=== PATIENT | male | born 1990 | race Caucasian/White ===

== ENCOUNTER 2017-04-02 12:48 | Inpatient (IN) | payer MEDICAID, OTHER ==
[~2017-04-02] VITALS: Ht 180.3 cm; Wt 99.8 kg
--- NOTE | 2017-04-02 14:15 | NUR ---
PRE ASSESSMENT PATIENT SEEN IN INTAKE OFFICE PATIENT ARRIVED FROM [facility] ( FROM [facility] ) SITTING IN CHAIR, DISHEVELED AND APPEARS INTOXICATED. POOR EYE CONTACT AND SEEMS VERY DROWSY. VITAL SIGNS TAKEN : BP 133/89, HR 118, O2 99%. PATIENT STATES THAT HE IS HERE TO DETOX FROM HEROIN ( INHALATION/SMOKE) LAST USED 30 HOURS AGO. HE ALSO STATES HE TOOK 2MG XANAX TODAY. PATIENT STATES THAT HE HAS DM TYPE 1 AND IS ON INSULIN, LAST ACCU CHECK WAS 1 HR AGO APPROX 1300 AND PATIENT STATES IT WAS 200 AND HE TOOK INSULIN ( UNSPECIFIED AMOUNT ) PATIENT HAS NO FOOD OR DRUG ALLERGIES , HE HAS NO PAIN AT THIS POINT, WILL CONTINUE ASSESSMENT WHEN PATIENT IS ON THE FLOOR , DR SAN AWARE OF PATIENT ARRIVAL AND ON THE WAY TO DO ADMISSION ORDERS.
[2017-04-02] MEDS ORDERED: LORAZEPAM 2 MG/1 ML VIAL IM PRN (14:45)
[2017-04-02] MEDS ORDERED: DIAZEPAM 5 MG TABLET PO PRN (14:45)
[2017-04-02] MEDS ORDERED: THIAMINE HCL 200 MG/2 ML VIAL IM ONE ×2 (14:45→17:00)
[2017-04-02] MEDS ORDERED: IBUPROFEN 600 MG TABLET PO PRN (14:45)
[2017-04-02] MEDS ORDERED: MAGNESIUM HYDROXIDE 30 ML LIQUID UDC PO PRN (14:45)
[2017-04-02] MEDS ORDERED: DIAZEPAM 10 MG TABLET PO PRN (14:45)
[2017-04-02] MEDS ORDERED: LOPERAMIDE HCL 2 MG CAPSULE PO PRN ×2 (14:45)
[2017-04-02] MEDS ORDERED: MIRALAX 17 GM POWD.PACK PO PRN (14:45)
[2017-04-02] MEDS ORDERED: DICYCLOMINE HCL 20 MG TABLET PO PRN (14:45)
[2017-04-02] MEDS ORDERED: MAG HYDROX/AL HYDROX/SIMETH 30 ML LIQUID UDC PO PRN (14:45)
[2017-04-02] MEDS ORDERED: ACETAMINOPHEN 325 MG TABLET PO PRN (14:45)
[2017-04-02] MEDS ORDERED: METHOCARBAMOL 750 MG TABLET PO PRN (15:00)
[2017-04-02] MEDS ORDERED: GABAPENTIN 300 MG CAPSULE PO SCH (15:00)
[2017-04-02] MEDS ORDERED: DEXTROSE 50% 50 ML DISP.SYRIN IV PRN (15:15)
[2017-04-02 15:30] VITALS: BP 149/88
[2017-04-02 15:59] LABS: BASOPHILS % (AUTO) 0.4 % (0.0-2.0); EOSINOPHILS # (AUTO) 0.1 K/uL (0.0-0.7); EOSINOPHILS % (AUTO) 0.9 % (0.0-7.0); HEMATOCRIT 42.7 % (36.7-47.1); HEMOGLOBIN 14.4 g/dL (12.5-16.3); LYMPHOCYTES # (AUTO) 2.4 K/uL (20.0-40.0); LYMPHOCYTES % (AUTO) 21.3 % (20.5-51.5); MEAN CORPUSCULAR HEMOGLOBIN 31.8 uug (23.8-33.4); MEAN CORPUSCULAR HGB CONC 34 g/dL (32.5-36.3); MEAN CORPUSCULAR VOLUME 94.6 fL (73.0-96.2); MONOCYTES # (AUTO) 1.1 K/uL (2.0-10.0); MONOCYTES % (AUTO) 9.9 % (0.0-11.0); NEUTROPHILS # (AUTO) 7.6 K/uL (1.8-8.9); NEUTROPHILS % (AUTO) 67.5 % (38.5-71.5); PLATELET COUNT (AUTO) 242 K/uL (152-348); RED BLOOD CELL COUNT(AUTO) 4.51 MIL/uL (4.06-5.63); WHITE BLOOD COUNT (AUTO) 11.2 K/uL (3.6-10.2)
[2017-04-02 16:00] VITALS: BP 149/88
--- NOTE | 2017-04-02 16:00 | NUR ---
ASSESSMENT: PATIENT IS IN ROOM 302, PATIENT IS IN A DEEP SLEEP ONLY AROUSABLE FOR A FEW SECONDS, VITALS SIGNS 149/88, HR 94, TEMP 97.4, RR 16, ACCU CHECK DONE BS 453 , CONFIRMED BY LAB RESULT FROM BLOOD DRAW OF 478 , MD NOTIFIED, ORDER FOR 20 UNITS HUMULIN R INSULIN , GIVEN @ 1619 WITH ORDERS TO RECHECK IN 2 HOURS. PATIENT ON A 1:1 FOR SAFETY , UNABLE TO DO FURTHER ASSESSMENT AND INTERVIEW ON PATIENT HE IS UNABLE TO STAY FOCUSED LONG ENOUGH WITHOUT FALLING BACK INTO A HEAVY SLEEP. MD ORDER FOR CONTINUOUS PULSE OX , PADDED SIDE RAILS UP X 2 , CONTINUE TO MONITOR CLOSELY.
[2017-04-02 16:18] LABS: ALANINE AMINOTRANSFERASE 31 U/L (16-63); ALKALINE PHOSPHATASE 123 U/L (50-136); ASPARTATE AMINOTRANSFERASE 16 U/L (15-37); BILIRUBIN,TOTAL 0.6 mg/dL (0.2-1.0); CARBON DIOXIDE 21 mmol/L (21-32); CHLORIDE 96 mmol/L (98-107); CREATININE 1.3 mg/dL (0.6-1.3); POTASSIUM 4.5 mmol/L (3.5-5.1); TOTAL PROTEIN, SERUM 7.2 g/dL (6.4-8.2); UREA NITROGEN, BLOOD 20 mg/dL (7-18)
[2017-04-02 16:19] LABS: GLUCOSE 478 mg/dL (74-106)
[2017-04-02] MEDS: BLOOD SUGAR DIAGNOSTIC 1 EACH STRIP VI SCH ×2 (16:19→21:08)
[2017-04-02] MEDS: INSULIN REGULAR, HUMAN 300 UNIT/3 ML VIAL SQ PRN (16:33)
[2017-04-02 17:37] LABS: *BILIRUBIN,URIN NEGATIVE (NEGATIVE); *BLOOD, URINE NEGATIVE (NEGATIVE); *CLARITY,URINE CLEAR (CLEAR); *COLOR,URINE YELLOW (YELLOW); *KETONES,URINE 3+ (NEGATIVE); *PROTEIN,URINE NEGATIVE (NEGATIVE); *UROBILINOGEN,URINE 0.2 E.U./dl (NORMAL); LEUKOCYTE ESTERASE ,URINE NEGATIVE (NEGATIVE); NITRITE, URINE NEGATIVE (NEGATIVE)
[2017-04-02] MEDS: GABAPENTIN 300 MG CAPSULE PO SCH ×2 (17:40→20:58)
[2017-04-02 17:51] LABS: UGLUCOSE 2+ (NEGATIVE)
[2017-04-02 17:52] LABS: BACTERIA,URINE NONE SEEN /HPF (NONE SEEN); RBC,URINE 0-3 /HPF (0-3); SQUAMOUS EPITHELIAL CELL,UR NONE SEEN /HPF (NONE SEEN); WBC,URINE 0-3 /HPF (0-3)
[2017-04-02 18:09] LABS: ETHANOL < 3 MG/DL (0-0)
[2017-04-02] MEDS ORDERED: BLOOD SUGAR DIAGNOSTIC 1 EACH STRIP VI ONE (18:30)
[2017-04-02] MEDS ORDERED: INSULIN REGULAR, HUMAN 300 UNIT/3 ML VIAL SQ ONE (19:00)
--- NOTE | 2017-04-02 19:18 | NUR ---
END OF SHIFT PATIENT IS TYPE 1 DIABETIC , BS AT 1618 WAS 453, NOTIFIED AND ORDERED SLIDING SCALE INSULIN, 20 UNITS HUMULIN R GIVEN @ 1633 RECHECK 2 HRS LATER PER MD ORDER BS 356 @ 1835, ORDER FOR 20 UNITS OF HUMULIN R GIVEN AT 1901. PATIENT IS AROUSABLE WITH NOXIOUS STIMULI BUT THEN QUICKLY FALLS BACK INTO A DEEP SLEEP AND IS UNABLE TO ANSWER ANY QUESTIONS. PATIENT IS ON A 1:1 FOR SAFETY WITH A CONTINUOUS PULSE OX PER MD ORDER, VIT B1 SHOT GIVEN @ 1602 AND GABAPENTIN 300MG ALSO GIVEN. UPON SHIFT CHANGE PATIENT IS TO BE TRANSFERRED TO ICU FOR CLOSER MONITORING AND OBSERVATION.
[2017-04-02 19:20] VITALS: BP 156/85
--- NOTE | 2017-04-02 19:20 | NUR ---
Start of Shift Note Received awake on bed on right side lying position. Admitted for medically supervised withdrawal of Heroin and Xanax. Px is on 1 to 1 due to unsteady gait and lethargy. AM shift nurse reported blood sugar is 356 mg/dl at 1830 and given 20 "u" of Humulin R. During the rounds, px is alert and responsive. VS are as follows at 1920 BP= 156/85, DE= 107, RR= 20, O2sat= 97% on RA. Px appears disheveled and anxious. Px stated that his anxiety is about 7/10. Px asked if he can eat because he's hungry. Px ate 30 to 40 % of his dinner plate. COWS 9 and CIWA 9 at this moment. Px stated that he was hospitalized 24 hours ago in [place] in [place] due to overdose of Heroin and stayed there for 24 hours. We'll continue to monitor.
[2017-04-02 19:25] LABS: *AMPHETAMINE, URINE NEGATIVE (NEGATIVE); *BARBITURATE, URINE NEGATIVE (NEGATIVE); *CANNABINOID, URINE NEGATIVE (NEGATIVE); *COCCAINE, URINE NEGATIVE (NEGATIVE); *OPIATE, URINE POSITIVE (NEGATIVE); *PHENCYCLIDINE SCREEN,URINE NEGATIVE (NEGATIVE)
--- NOTE | 2017-04-02 19:30 | NUR ---
Transfer to ER Px was transferred to ER via wheelchair per Dr. Palomares' order to monitor for possible DKA. Px was endorsed to nurse Messer of ER with laboratory results copy and px's face sheet.
[2017-04-02 20:30] VITALS: BP 150/94
--- NOTE | 2017-04-02 20:30 | NUR ---
Transfer back from ER Px was transferred back from ER via wheel chair. Px appears anxious, and drowsy. VS as follows BP= 150/94, AR= 103, RR= 20, O2sat= 99% and T= 97.5. COWS 15 and CIWA 15 at this moment. Px is still on 1 to 1 for safety. We'll continue to monitor.
[2017-04-02] MEDS: DIAZEPAM 10 MG TABLET PO PRN (20:58)
[2017-04-02] MEDS: BUPRENORPHINE HCL 2 MG TAB.SUBL SL PRN (20:58)
--- NOTE | 2017-04-02 20:58 | NUR ---
PRN meds Px received Subutex 2 mg/tab, 2 tabs given SL for COWS 15; Valium 10 mg/tab, 1 tab given PO for CIWA 15 and Clonidine 0.1 mg/tab, 1 tab given PO as PRN meds. We'll continue to monitor.
[2017-04-02] MEDS: CLONIDINE HCL 0.1 MG TABLET PO PRN (20:59)
--- NOTE | 2017-04-02 21:08 | NUR ---
Accucheck Px blood sugar is 147 mg/dl. Humulin R 2 "u" injected subcutaneously per sliding scale on left deltoids. We'll continue to monitor.
[2017-04-02] MEDS: INSULIN REGULAR, HUMAN 300 UNITS/3 ML VIAL SQ PRN (21:14)
[2017-04-03] VITALS: BP 147/102
--- NOTE | 2017-04-03 02:20 | NUR ---
Assessment Notes Assessment done 26 y/o male px at 0220 on 04/03/2017, just when the px woke up. Px is A&Ox4 but drowsy. Px is cooperative. Admitted for medically supervised withdrawal of Opiate and Benzo. Px came to the unit at 1455 on 04/02/2017. Px was seen by Dr. Palomares in intake office. Px is on 1 to 1 for unsteady gait and safety. Damaso is Full Code, has NKA and on CCHO diet. Lungs sounds are clear bilaterally with active bowel sounds per auscultation. Px stated that he was in in detox/treatment several times. Px reported PMHx of 25x seizures/epilepsy where the last was 5 mos ago, DM type 1, anxiety, depression, bipolar, pneumonia and arthritis. COWS 9 and CIWA 8 at this moment. Px currently denies suicidal ideation. Px height is 5'11" weighs 220 lbs. Substance Abuse Hx 1. Heroin- 0.5 G smoked daily for 3 years, last intake 04/01/2017 of 0.5 G smoked 2. Xanax- 2 mg PO daily for 3 years, last intake 04/01/2017 of 2 mg PO Px reported hospitalized 1 day ago to [facility] in [place]. He stayed there for a 24 hours for overdose of Heroin. Damaso is a cigarette smoker of 1 pack/day. Px refused pneumonia and flu vaccines. Px was sober for 9 months in 2004. Px is on fall and seizure precaution. Bed in lowest position, side rails up 2x padded, call light within reach. We'll continue to monitor.
[2017-04-03] MEDS: diphenhydrAMINE 50 MG CAPSULE PO PRN ×2 (02:25→21:23)
--- NOTE | 2017-04-03 02:25 | NUR ---
PRN Benadryl Px complained for body itch. Benadryl 50 mg/cap, 1 cap given PO as PRN med. We'll continue to monitor.
[2017-04-03] MEDS: CLONIDINE HCL 0.1 MG TABLET PO PRN ×2 (03:16→21:23)
--- NOTE | 2017-04-03 03:16 | NUR ---
PRN Clonidine Px was given Clonidine 0.1 mg PO for anxiety and BP. We'll continue to monitor.
[2017-04-03 04:00] VITALS: BP 156/100
--- NOTE | 2017-04-03 04:30 | NUR ---
Px went to shower Px with steady gait, px went to shower with SHIPPING INSPECTOR inside the bathroom for safety. We'll continue to monitor.
[2017-04-03] MEDS: DIAZEPAM 10 MG TABLET PO PRN (04:55)
[2017-04-03] MEDS: BUPRENORPHINE HCL 2 MG TAB.SUBL SL PRN ×2 (04:55→12:50)
--- NOTE | 2017-04-03 04:55 | NUR ---
PRN meds Px received Subutex 2 mg/tab, 2 tabs given SL for COWS 15; Valium 10 mg/tab, 1 tab given PO for CIWA 15 as PRN meds. We'll continue to monitor.
[2017-04-03] MEDS ORDERED: ONDANSETRON 4 MG/2 ML VIAL IM PRN (05:00)
[2017-04-03] MEDS ORDERED: ONDANSETRON ODT 4 MG TAB.RAPDIS SL PRN (05:00)
--- NOTE | 2017-04-03 07:12 | NUR ---
End of Shift Notes During the shift, At 1929, px was transferred to ER per Dr. Palomares order for possible DKA. Px returned to the unit at 2029. Px received 4 mg of Subutex PRN for COWS 15 and 10 mg of Valium PRN for CIWA 15 at 2057 and again at 454. Px got 2 tabs of Clonidine 0.1 mg PO as PRN med for anxiety and high BP in different occasions. Blood sugar at 2107 was 147 mg/dl, 2 "u" of Humulin R administered per sliding scale. At 224, px was given Benadryl 50 mg PO for body itch. It was not so effective. Px went to shower at 429 due to body itch with MEDICAL TECHNOLOGIST HEMATOLOGY inside the bathroom for safety reasons. Latest BP= 143/98 at 629. At 0630, px was asleep on bed in fowlers position. Bed on lowest position, side rails up padded 2x, and call light within reach. We'll continue to monitor. Px endorsed to AM shift nurse.
--- NOTE | 2017-04-03 07:45 | NUR ---
START OF SHIFT RECEIVED PT IN BED. PT APPEARS DROWSY, AROUSABLE BUT FALLS ASLEEP AGAIN. PT REMAINS ON A 1:1 FOR SAFETY. SIDE RAILS UP X2, BED IS IN LOWEST POSITION. ALL SAFETY MEASURES IN PLACE. WILL CONTINUE TO MONITOR.
[2017-04-03 08:00] VITALS: BP_SYST 155; BP_DIAS 100; BP_DIAS 98
--- NOTE | 2017-04-03 08:00 | NUR ---
COWS/CIWA DEFERRED DUE TO PT SLEEPING.
--- NOTE | 2017-04-03 08:05 | NUR ---
JESS BS 552/ MD COMMUNICATIONS MD NOTIFIED. 20 UNITS OF HUMULIN R SLIDING SCALE GIVEN. ORDER TO REASSESS IN 2 HRS.
[2017-04-03] MEDS: BLOOD SUGAR DIAGNOSTIC 1 EACH STRIP VI SCH ×4 (08:07→21:25)
[2017-04-03] MEDS: INSULIN REGULAR, HUMAN 300 UNIT/3 ML VIAL SQ PRN ×3 (08:10→17:34)
[2017-04-03] MEDS ORDERED: 4 DAY TAPER BUPRENORPHINE -SERENITY PROTOCOL SL PRN (09:00)
[2017-04-03] MEDS ORDERED: TUBERCULIN,PURIF.PROT.DERIV. 5 TU/0.1 ML TEST ID ONE (09:00)
[2017-04-03] MEDS ORDERED: DIAZEPAM 2 MG TABLET PO SCH (09:00)
[2017-04-03] MEDS: BUPRENORPHINE HCL 2 MG TAB.SUBL SL SCH ×3 (09:00→21:22)
[2017-04-03] MEDS: MULTIVITAMINS,THERAPEUTIC TABLET PO SCH (09:07)
[2017-04-03] MEDS: DOCUSATE SODIUM 250 MG CAPSULE PO SCH (09:07)
[2017-04-03] MEDS: THIAMINE HCL 100 MG TABLET PO SCH (09:08)
[2017-04-03] MEDS: FOLIC ACID 1 MG TABLET PO SCH (09:08)
[2017-04-03] MEDS: GABAPENTIN 300 MG CAPSULE PO SCH ×3 (09:08→21:24)
--- NOTE | 2017-04-03 09:45 | NUR ---
MD COMMUNICATIONS HOLD VALIUM/SUBUTEX DOSE PER MD. PT APPEARS TOO SEDATED. AROUSABLE TO TOUCH/TAPPING; PT FALLS ASLEEP WHILE TALKING. WILL CONTINUE TO MONITOR.
--- NOTE | 2017-04-03 09:45 | NUR ---
COMMUNICATIONS HYDRALAZINE 25 MG PO PRN ORDERED BY DR. SAN FOR BP 155/101. TO REASSESS IN 2 HRS.
[2017-04-03] MEDS ORDERED: INSU100I28 SQ (09:52)
[2017-04-03] MEDS ORDERED: DEXT-150 PO (09:52)
[2017-04-03] MEDS ORDERED: GLUC1KIT IM (09:52)
[2017-04-03] MEDS ORDERED: INSU100V (09:52)
[2017-04-03] MEDS ORDERED: NPH,100I SQ ×2 (09:52)
[2017-04-03] MEDS ORDERED: BLOOD SUGAR DIAGNOSTIC 1 EACH STRIP VI ONE ×2 (10:00→13:00)
--- NOTE | 2017-04-03 10:00 | NUR ---
ACCUCHRAMOS BS 478/ MD COMMUNICATIONS MD NOTIFIED; ORDERED 30 UNITS OF NPH X1. RECHECK BEFORE LUNCH TIME.
[2017-04-03] MEDS ORDERED: INSULIN NPH 1,000 UNITS/10 ML VIAL SQ ONE (10:15)
[2017-04-03] MEDS ORDERED: PATIENT MAY USE OWN MED- MD OK SQ ONE (10:30)
[2017-04-03] MEDS ORDERED: hydrALAZINE HCL 25 MG TABLET PO ONE (10:30)
--- NOTE | 2017-04-03 11:31 | NUR ---
REASSESSMENT BP: 130/90 UPON REASSESSMENT. PT APPEARS CALM. WILL CONTINUE TO MONITOR.
--- NOTE | 2017-04-03 11:47 | NUR ---
MD COMMUNICATIONS MD ORDERED ACCUCHECK X1 JUST BEFORE LUNCH TO DO ONE MORE TIME FOR CHANGES IN BS FOR SLIDING SCALE.
[2017-04-03 12:00] VITALS: BP 139/90
--- NOTE | 2017-04-03 12:02 | NUR ---
PT WAS ANGRY, TALKING TO STAFF INAPPROPRIATELY. PT VERBALIZED HE WANTED TO GET INSULIN NOW INSTEAD OF ORDERED BY MD. PT STATED, "GIVE ME ALL MY D/C PAPERS. I CANT STAY HERE." PT VERBALIZED HE WANTED TO LEAVE AMA, STAFF EXPLAINED RISKS AND BENEFITS. MULTIPLE STAFF INTERVENED. PT AGREED TO STAY. WILL CONTINUE TO MONITOR.
--- NOTE | 2017-04-03 12:50 | NUR ---
PRN PT SUBUTEX GIVEN FOR COWS 12. PT REFUSED VALIUM FOR CIWA 8.
[2017-04-03] MEDS ORDERED: LORAZEPAM 1 MG TABLET PO PRN ×2 (15:15)
[2017-04-03] MEDS ORDERED: INSULIN ASPART 1000 UNITS/10 ML VIAL(NOVOLOG) SQ PRN (15:30)
--- NOTE | 2017-04-03 15:50 | NUR ---
PT WAS UPSET, RAISING HIS VOICE, VERBALIZED HE DOES NOT WANT THE CONSISTENT CARB DIET ORDERED. PT VERBALIZED HE WANTED HIS BS CHECKED WHENEVER HE WANTED AND HAVE INSULIN WHEN HE WANTED. PT STATED, "I WANT TO LEAVE AMA. I AM SO HUNGRY, I WANT TO EAT A BIG BOWL OF PASTA RIGHT NOW. I DONT WANT ANY SNACKS. I WANT SOMETHING BIG AND FILLING." EXPLAINED TO PT RISKS AND BENEFITS OF BEING NON-COMPLIANT. EXPLAINED RISKS AND BENEFITS OF LEAVING AMA. REINFORCEMENT NEEDED. Addendum: 04/03/17 at 1749 by JASMYN SUN RN , CHARGE NURSE, CASE MANAGEMENT NOTIFIED.
[2017-04-03 16:00] VITALS: BP 132/88
[2017-04-03] MEDS ORDERED: diphenhydrAMINE 50 MG CAPSULE PO ONE (16:15)
[2017-04-03] MEDS ORDERED: INSULIN ASPART 1000 UNITS/10 ML VIAL(NOVOLOG) SQ SCH (16:30)
[2017-04-03] MEDS ORDERED: HUMALOG SQ PRN (17:00)
--- NOTE | 2017-04-03 17:01 | NUR ---
OKAY TO GIVE 1700 MEDS SUBUTEX/GABAPENTIN PAST DUE PER .
--- NOTE | 2017-04-03 19:30 | NUR ---
START OF SHIFT NOTE : 26 y/o male admitted for medically supervised withdrawal of Heroin and Xanax on 04/03/2017. Px is on 1:1 due to unsteady gait and lethargy, for safety. AM shift nurse reported last blood sugar is 228 mg/dl, pt. already placed on ACCU-CHEKS in AM/HS with a sliding scale, see orders for details. Pt. also placed on 4 day Subutex taper, tolerates well. Upon assessment pt. is resting in the room, easy arausable, states he feels better , but still is very concern about his BS values, complains of fatigue, unsteady gait, insomnia and increased level of anxiety. Safety measures in place : bed on lowest position with side rails x2 up for safety, call light within reach. Will continue to monitor closely and offer help.
--- NOTE | 2017-04-03 19:42 | NUR ---
HYDRALAZINE 25 MG PO X1 GIVEN FOR BP 152/89. WILL MONITOR FOR EFFECTIVENESS. Addendum: 04/03/17 at 1943 by JASMYN SUN RN CORRECT TIME: 1031. Addendum: 04/03/17 at 1945 by JASMYN SUN RN GIVEN FOR BP: 155/100
--- NOTE | 2017-04-03 19:54 | NUR ---
END OF SHIFT LAST COWS 12 CIWA 8 @1600. PT WAS UPSET, YELLING AT STAFF, MULTIPLE TIMES THROUGHOUT SHIFT, VERBALIZED HE WANTED TO LEAVE AMA DUE TO NOT BEING ABLE TO GET INSULIN WHENEVER HE WANTED AND BECAUSE HE DID NOT WANT TO COMPLY WITH THE DIET ORDERED. MD ORDERED HUMALOG 4 UNITS AC WITH HUMALIN R AC SLIDING SCALE, HUMULIN N (NPH) 30 UNITS AM AND 20 UNITS HS. MD ORDERED HUMULOG PRN FOR CARB COUNTIN UNITS FOR Q 60 GRAMS OF CARBS FOR IN BETWEEN SNACKS. PT REFUSED VALIUM TAPER MODIFIED MEDICATIONS; ATIVAN PRN ORDERED IF NEEDED. ALL SAFETY MEASURES IN PLACE. WILL GIVE ENDORSEMENT AND PERTINENT INFO TO HEARING AID SPECIALIST NURSE.
[2017-04-03 20:00] VITALS: BP 154/95
[2017-04-03] MEDS ORDERED: HUMULIN N SQ SCH (21:00)
[2017-04-03] MEDS ORDERED: INSULIN NPH 1,000 UNITS/10 ML VIAL SQ SCH (21:00)
--- NOTE | 2017-04-03 21:00 | NUR ---
PRN BENADRYL , CATAPRES PRN BENADRYL PO GIVEN FOR Sleeplessness and Catapres because of LE=186/95. Safety measures in place : bed on lowest position with side rails x2 up for safety, call light within reach. Will continue to monitor closely and offer help.
--- NOTE | 2017-04-03 21:00 | NUR ---
ACCU-MBPSZ=401, PRN HUMULIN R 3 UNITS SC ACCU-PCSBC=425, PRN HUMULIN R 3 UNITS SC given as ordered, cont. to monitor closely.
[2017-04-03] MEDS: INSULIN REGULAR, HUMAN 300 UNITS/3 ML VIAL SQ PRN (21:20)
--- NOTE | 2017-04-03 22:00 | NUR ---
RE-ASSESSMENT GONZALEZ KAUR Pt. is sleeping, RR=16, unlabored and even . Safety measures in place : bed on lowest position with side rails x2 up for safety, call light within reach. Will continue to monitor closely and offer help.
[2017-04-04 04:00] VITALS: BP 150/92
--- NOTE | 2017-04-04 04:00 | NUR ---
BEHAVIOR Pt. is agitated, disrespectful, using abusive language, emotionally volatile, suspicious, demanding, wants ACCU-Check should be done right away because of "I have reed high blood sugar, I want to leave unit AMA and go to the "[facility]" to eat regular food". Dr. Palomares is called, new orders given : to do ACCU-Check and call back only with critical value. Pt. can get one pack of beef jerkey , one bottle of Diet Coke. Continue to monitor closely and offer help.
--- NOTE | 2017-04-04 04:00 | NUR ---
PRN ATIVAN ( CIWA=17 , COWS=9 ) , ACCU-CHECK Pt. is agitated, disrespectful, using abusive language, skin is wet, CIWA=17, COWS=9. PRN ATIVAN given as ordered.ZY=202 mg/dl. Safety measures in place : bed on lowest position with side rails x2 up for safety, call light within reach. Will continue to monitor closely and offer help.
--- NOTE | 2017-04-04 04:58 | NUR ---
RE-ASSESSMENT ATIVAN Pt. is sleeping, RR=16, unlabored and even . Safety measures in place : bed on lowest position with side rails x2 up for safety, call light within reach. Will continue to monitor closely and offer help.
--- NOTE | 2017-04-04 06:22 | NUR ---
START OF SHIFT NOTE : 26 y/o male admitted for medically supervised withdrawal of Heroin and Xanax on 04/03/2017. Pt. is on 1:1 due to unsteady gait and lethargy, for safety, last blood sugar is 187 mg/dl, pt. already placed on ACCU-CHECKS in AM/HS with a sliding scale. Pt. also placed on 4 day Subutex taper, tolerates well. Pt. is compliant with a TX plan, PRN given during awake overnight counselor : BENADRYL, CATAPRES, HUMULIN R 3 units SC, ATIVAN, ACCU-CHECK. Pt. was agitated, disrespectful, used abusive language, emotionally volatile, suspicious, demanding, wanted ACCU-Check should be done right away because of "I have reed high blood sugar, I want to leave unit AMA and go to the "[facility]" to it regular food". Dr. Palomares was called, new orders given. CIWA=17 at 04:00. CIWA, COWS taken when pt. was awake, last COWS=9 at 04:00. Intake= , voided x , slept= hours. Safety measures in place : bed on lowest position with side rails x2 up for safety, call light within reach. Will continue to monitor closely and offer help. Addendum: 04/04/17 at 0625 by AISHA CR RN This is END OF SHIFT NOTE , COWS=9, CIWA=8, [id number], voided x2, slept=6hours.
--- NOTE | 2017-04-04 07:15 | NUR ---
Start of Shift Director Biomedical Engineering received report on 26 year old male admitted to [facility] on 04/02/17 for Heroin and Xanax detoxification. Pt reports NKDA, full code and regular diet. PMH of DM 1 and seizures, seizure interventions implemented. Pt was administered Benadryl and Clonidine on the NOC, tolerating well. Pt currently on a Valium and Subutex taper, tolerating well. Last COWS 8, CIWA 8 at 0400. Pt was wanting to leave AMA last evening, but was educated on need for detoxification and importance of following MD orders. Director Biomedical Engineering is encountered in his room resting with eyes closed, even rise and fall of chest. Even and unlabored respirations. Sitter at bedside. Bed in low position, wheels locked and side rails up x2. Will continue to monitor, support and encourage according to plan of care. Addendum: 04/04/17 at 0900 by WILLIAMS TOVAR RN Pt not on regular diet. Pt on Diabetic diet
[2017-04-04] MEDS ORDERED: HUMULIN N SQ SCH (07:30)
[2017-04-04] MEDS: BLOOD SUGAR DIAGNOSTIC 1 EACH STRIP VI SCH ×3 (07:38→12:43)
[2017-04-04] MEDS: INSULIN REGULAR, HUMAN 300 UNIT/3 ML VIAL SQ PRN (08:00)
[2017-04-04] MEDS: HUMALOG SQ SCH ×2 (08:02→11:30)
--- NOTE | 2017-04-04 08:10 | NUR ---
Behavior/AMA Supportability Engineer attempting to administer insulin per MD order and sliding scale protocol, pt became argumentative, verbally aggressive, abrasive and rude. Pt began complaining of poor treatment, of nothing being done for his diabetes and the unit being filled with , " a bunch of clowns." Pt continues to argue his insulin dosages, while keno writer slowly identifies medication, units to be administered and reasoning for. Pt continues being rude, abrasive and is not redirectable. Supportability Engineer asks Zuleyma THOMSON to witness insulin and be present while keno writer educates pt on insulin administration. Pt states several time he wants to AMA. Pt states, " yes, I wanna use, what do you think." Pt is anxious, tense and agitated. Angry affect with congruent mood. Pt is educated on benefits and consequences of staying in detox to those of leaving AMA. Pt continues to insist to leave AMA. Pt educated on need for CM to arrive to provide access to pt's personal belongings. Pt states, " I am leaving as soon as I can." MD, CM, and DON all aware.
[2017-04-04 08:17] VITALS: BP 136/87
[2017-04-04] MEDS ORDERED: BUPRENORPHINE HCL 2 MG TAB.SUBL SL SCH ×2 (09:00→15:00)
[2017-04-04] MEDS ORDERED: DIAZEPAM 5 MG TABLET PO SCH (09:00)
[2017-04-04] MEDS ORDERED: INSULIN NPH 1,000 UNITS/10 ML VIAL SQ SCH (09:00)
[2017-04-04] MEDS: MULTIVITAMINS,THERAPEUTIC TABLET PO SCH (09:27)
[2017-04-04] MEDS: DOCUSATE SODIUM 250 MG CAPSULE PO SCH (09:27)
[2017-04-04] MEDS: THIAMINE HCL 100 MG TABLET PO SCH (09:27)
[2017-04-04] MEDS: FOLIC ACID 1 MG TABLET PO SCH (09:27)
[2017-04-04] MEDS: GABAPENTIN 300 MG CAPSULE PO SCH (09:27)
--- NOTE | 2017-04-04 12:18 | NUR ---
1130 Accu-check 67 Exhaust Emissions Automotive Technician performed accu-check with a result of 67. Pt is A/O x4, but drowsy. Able to make needs known and converse with clear thought and speech. Exhaust Emissions Automotive Technician had pt consume a bottle of orange juice and provided pt with a banana. Exhaust Emissions Automotive Technician notified MD of BS and corrective action taken by technical writer. Will re-evaluate and continue to monitor, support and encourage according to plan of care.
[2017-04-04] MEDS ORDERED: GABA-534 PO (12:22)
[2017-04-04] MEDS ORDERED: IBUP-1955 PO (12:22)
[2017-04-04] MEDS ORDERED: METH-406 PO (12:22)
[2017-04-04 12:30] VITALS: BP 128/75
[2017-04-04] MEDS ORDERED: CLON0.1T14 PO (12:31)
--- NOTE | 2017-04-04 12:46 | NUR ---
BS re-check Pt's BS re-check 124. MD notified of re-check. MS aware of BS and states, " no coverage needed". Will continue to monitor, support and encourage according to plan of care.
--- NOTE | 2017-04-04 14:00 | NUR ---
Discharge Pt is discharged per ambulation to private car where pt will be transported to [facility]. Pt has calmed since steno pool supervisor tirades, in which pt was verbally abusive with an angry affect and mood. Pt since apologized to staff writer and has been calm and cooperative, polite with staff. Pt made extensive education on diabetes treatment and was educated on medication indications, timing and routs. Pt voices no more further comments, questions or concerns. Pt denies A/VH or HI/SI, or any other psychiatric symptoms. Pt signed all necessary paperwork for discharge. All personal belongings and home medications were returned and signed for. Pt departed in stable condition with no restrication, aside from dietary.
[2017-04-05 06:06] LABS: HEPATITIS B SURFACE AG Negative (Negative)
[2017-04-05] MEDS ORDERED: DIAZEPAM 10 MG TABLET PO SCH (09:00)
[2017-04-05] MEDS ORDERED: BUPRENORPHINE HCL 2 MG TAB.SUBL SL SCH (09:00)
[2017-04-06] MEDS ORDERED: BUPRENORPHINE HCL 2 MG TAB.SUBL SL SCH (09:00)
[2017-04-06] MEDS ORDERED: DIAZEPAM 5 MG TABLET PO SCH (09:00)
== END 2017-04-04 14:00 | disposition other institution (70) | DRG 772 ==
LOC: SRC 14:04
PROVIDERS: ADMIT Internal Medicine; ATTEND Internal Medicine
PROC: HZ2ZZZZ Detoxification Services for Substance Abuse Treatment (ICD-10-PCS; principal; 2017-04-02)
PROC: HZ31ZZZ Individual Counseling for Substance Abuse Treatment, Behavioral (ICD-10-PCS; 2017-04-04)
DX: F11.23 Opioid dependence with withdrawal (principal); G92 Toxic encephalopathy; E10.65 Type 1 diabetes mellitus with hyperglycemia; F13.230 Sedative, hypnotic or anxiolytic dependence with withdrawal, uncomplicated; Z79.4 Long term (current) use of insulin; F41.9 Anxiety disorder, unspecified; F17.210 Nicotine dependence, cigarettes, uncomplicated; Z91.19 Patient's noncompliance with other medical treatment and regimen; F32.9 Major depressive disorder, single episode, unspecified
CPT/HCPCS: 36415; 80307; 80346; 80361; 83735; 85025; 86580; 86592; 86705; 86803; 87340; 87806; A4663; G0480; J1815; J3411; Q0163

== ENCOUNTER 2017-04-02 19:38 | Emergency (ER) | payer MEDICAID, OTHER ==
[~2017-04-02] VITALS: Ht 180.3 cm; Wt 104.3 kg
--- NOTE | 2017-04-02 19:45 | NUR ---
Dr Del Valle at bedside for assessment and eval.
[2017-04-02] MEDS ORDERED: diphenhydrAMINE 50 MG/1 ML VIAL IV ONE (20:00)
[2017-04-02] MEDS ORDERED: KETOROLAC TROMETHAMINE 30 MG INJ IVP ONE (20:00)
[2017-04-02] MEDS ORDERED: INSULIN REGULAR, HUMAN 1,000 UNITS/10 ML VIAL IV ONE (20:00)
[2017-04-02] MEDS ORDERED: IV NORMAL SALINE 1000 ML BAG IV ONE ×2 (20:00)
[2017-04-02] MEDS ORDERED: PROCHLORPERAZINE EDISYLATE 10 MG/2 ML VIAL IV ONE (20:00)
[2017-04-02] MEDS ORDERED: LORAZEPAM 2 MG/1 ML VIAL IV ONE (20:00)
[2017-04-02] MEDS ORDERED: INSULIN REGULAR, HUMAN 300 UNIT/3 ML VIAL ONE (20:10)
[2017-04-02 20:13] LABS: BASOPHILS # (AUTO) 0.1 K/uL (0.0-8.0); BASOPHILS % (AUTO) 0.6 % (0.0-2.0); EOSINOPHILS # (AUTO) 0.1 K/uL (0.0-0.7); EOSINOPHILS % (AUTO) 1.2 % (0.0-7.0); HEMATOCRIT 42.7 % (36.7-47.1); HEMOGLOBIN 14.5 g/dL (12.5-16.3); LYMPHOCYTES # (AUTO) 3.1 K/uL (20.0-40.0); LYMPHOCYTES % (AUTO) 24.3 % (20.5-51.5); MEAN CORPUSCULAR HEMOGLOBIN 31.6 uug (23.8-33.4); MEAN CORPUSCULAR HGB CONC 34 g/dL (32.5-36.3); MEAN CORPUSCULAR VOLUME 93.1 fL (73.0-96.2); MONOCYTES # (AUTO) 1.2 K/uL (2.0-10.0); NEUTROPHILS # (AUTO) 8.3 K/uL (1.8-8.9); NEUTROPHILS % (AUTO) 64.9 % (38.5-71.5); PLATELET COUNT (AUTO) 265 K/uL (152-348); RED BLOOD CELL COUNT(AUTO) 4.58 MIL/uL (4.06-5.63); WHITE BLOOD COUNT (AUTO) 12.8 K/uL (3.6-10.2)
--- NOTE | 2017-04-02 20:14 | NUR ---
INSULIN WITNESS 10 UNITS REGULAR
--- NOTE | 2017-04-02 20:15 | NUR ---
A/Ox4. Patient refusing treatments/interventions at this time. Education provided of risks/benefits. Dr. Del Valle notified.
--- NOTE | 2017-04-02 20:20 | NUR ---
Patient does not wish to proceed with medical care recommended by Dr. Del Valle. Patient given information related to possible complications, up to and including , which could occur as a result of leaving the hospital at this time. Patient verbalizes understanding of risks involved due to leaving against medical advice. Patient has signed AMA form. Patient left department accompanied by Serenity RNDayo. [facility] unit informed.
[2017-04-02 20:22] LABS: CREATININE 1.3 mg/dL (0.6-1.3)
--- NOTE | 2017-04-02 20:23 | NUR ---
Lab called for critical Glucose, 327 notified
[2017-04-02 20:27] LABS: BILIRUBIN,DIRECT 0.1 mg/dL (0.0-0.2); BILIRUBIN,TOTAL 0.6 mg/dL (0.2-1.0); TOTAL PROTEIN, SERUM 7.4 g/dL (6.4-8.2)
[2017-04-02 20:29] VITALS: BP 148/71
[2017-04-03] MEDS ORDERED: GLUC1KIT IM (09:52)
[2017-04-03] MEDS ORDERED: DEXT-150 PO (09:52)
[2017-04-03] MEDS ORDERED: INSU100I28 SQ (09:52)
[2017-04-03] MEDS ORDERED: NPH,100I SQ ×2 (09:52)
[2017-04-03] MEDS ORDERED: INSU100V (09:52)
== END 2017-04-02 20:25 | disposition left against medical advice (07) ==
LOC: ER 19:39
DX: F15.93 Other stimulant use, unspecified with withdrawal (principal); E10.65 Type 1 diabetes mellitus with hyperglycemia; F17.200 Nicotine dependence, unspecified, uncomplicated
CPT/HCPCS: 83690; 85025; 93005; A4663; J1815; J7030